=== PATIENT | female | born 1975 | race Caucasian/White ===

== ENCOUNTER → 2020-05-12 | Outpatient (CLI) | payer OTHER ==
[~2020-05-12] MED LIST: CALC-534 PO; CHOL200024 PO; FERR325T18 PO; LORA10CA PO; META800T PO; PSEU120T60 PO; VITA1CAP PO
== END | disposition home or self-care (01) ==
LOC: CFH 06:52
PROVIDERS: ATTEND Family Medicine
DX: Z12.31 Encounter for screening mammogram for malignant neoplasm of breast (principal)
CPT/HCPCS: 77063; 77067